=== PATIENT | male | born 1985 | race African-American/Black ===

== ENCOUNTER 2017-06-15 10:51 | Emergency (ER) | payer MEDICAID ==
[2017-06-15 10:56] VITALS: BP 120/67
--- NOTE | 2017-06-15 11:15 | ER Document Report ---
ED Medical Screen (RME) - General Chief Complaint: Bloody Stools Stated Complaint: BLOOD IN STOOL Time Seen by Provider: 06/15/17 11:03 - Related Data Allergies/Adverse Reactions: No Known Allergies Allergy (Unverified 01/22/14 19:34) Past Medical History - Social History Chew tobacco use (# tins/day): No Frequency of alcohol use: None Drug Abuse: Marijuana Renal/ Medical History: Denies: Hx Peritoneal Dialysis Physical Exam - Vital signs Vitals: Temp Pulse Resp BP Pulse Ox 98 F 76 14 120/67 100 06/15/17 10:55 06/15/17 10:55 06/15/17 10:55 06/15/17 10:55 06/15/17 10:55 - General General appearance: Appears well, Alert In distress: None - Respiratory Respiratory status: No respiratory distress Chest status: Nontender Breath sounds: Normal - Cardiovascular Rhythm: Regular Heart sounds: Normal auscultation Murmur: No - Abdominal Inspection: Normal Distension: No distension Bowel sounds: Normal - Extremities General upper extremity: Normal inspection, Normal ROM. No: Edema General lower extremity: Normal inspection, Normal ROM. No: Edema - Neurological Neuro grossly intact: Yes Cognition: Normal Orientation: AAOx4 - Psychological Associated symptoms: Normal affect, Normal mood - Skin Skin Temperature: Warm Skin Moisture: Dry Skin Color: Normal Course - Vital Signs Vital signs: Temp Pulse Resp BP Pulse Ox 98 F 76 14 120/67 100 06/15/17 10:55 06/15/17 10:55 06/15/17 10:55 06/15/17 10:55 06/15/17 10:55
--- NOTE | 2017-06-15 11:17 | ER Document Report ---
ED GI Bleed / Rectal Pain - General Mode of Arrival: Ambulatory Information source: Patient - General Chief Complaint: Bloody Stools Stated Complaint: BLOOD IN STOOL Time Seen by Provider: 06/15/17 11:03 Notes: Patient is a 32-year-old male who presents to the emergency department today with complaints of rectal bleeding off and on for the last four months. Patient states he "filled the toilet with blood". Patient states had a bowel movement yesterday with no pain. Patient states he has an appointment with his doctor on the but he did not want to wait that long as he is nervous about bleeding from his rectum. Patient states he has had sporadic rectal pain and "might have a hemorrhoid". Patient is not on any anticoagulation, has had no anal trauma, and has no associated abdominal pain. (GILDARDO [facility]) - Related Data Allergies/Adverse Reactions: No Known Allergies Allergy (Unverified 01/22/14 19:34) Past Medical History - General Information source: Patient - Social History Smoking Status: Never Smoker Cigarette use (# per day): No Chew tobacco use (# tins/day): No Frequency of alcohol use: None Drug Abuse: Marijuana Lives with: Family Family History: Reviewed & Not Pertinent Patient has suicidal ideation: No Patient has homicidal ideation: No - Medical History Medical History: Negative Surgical Hx: Negative Review of Systems - Review of Systems Constitutional: No symptoms reported EENT: No symptoms reported Cardiovascular: No symptoms reported Respiratory: No symptoms reported Gastrointestinal: See HPI, Rectal bleeding. denies: Abdominal pain Genitourinary: No symptoms reported Male Genitourinary: No symptoms reported Musculoskeletal: No symptoms reported Skin: No symptoms reported Hematologic/Lymphatic: No symptoms reported Neurological/Psychological: No symptoms reported -: Yes All other systems reviewed and negative Physical Exam - Vital signs Interpretation: Normal - General General appearance: Appears well, Alert - HEENT Head: Normocephalic, Atraumatic Eyes: Normal Pupils: PERRL - Respiratory Respiratory status: No respiratory distress Chest status: Nontender Breath sounds: Normal Chest palpation: Normal - Cardiovascular Rhythm: Regular Heart sounds: Normal auscultation Murmur: No - Abdominal Inspection: Normal Distension: No distension Bowel sounds: Normal Tenderness: Nontender Organomegaly: No organomegaly - Rectal Tenderness: No Stool: Heme negative, See lab result, Other - brown stool Hemorrhoids: External - at the 1oclock position, non-thrombosed - Back Back: Normal, Nontender - Extremities General upper extremity: Normal inspection, Normal ROM. No: Edema General lower extremity: Normal inspection, Normal ROM. No: Edema - Neurological Neuro grossly intact: Yes Cognition: Normal Orientation: AAOx4 Shailesh Coma Scale Eye Opening: Spontaneous Shailesh Coma Scale Verbal: Oriented Shialesh Coma Scale Motor: Obeys Commands Shailesh Coma Scale Total: 15 Speech: Normal Motor strength normal: LUE, RUE, LLE, RLE Sensory: Normal - Psychological Associated symptoms: Normal affect, Normal mood - Skin Skin Temperature: Warm Skin Moisture: Dry Skin Color: Normal - Vital signs Vitals: Temp Pulse Resp BP Pulse Ox 98 F 76 14 120/67 100 06/15/17 10:55 06/15/17 10:55 06/15/17 10:55 06/15/17 10:55 06/15/17 10:55 - Vital Signs Vital signs: Temp Pulse Resp BP Pulse Ox 98 F 76 14 120/67 100 06/15/17 10:55 06/15/17 10:55 06/15/17 10:55 06/15/17 10:55 06/15/17 10:55 Discharge - Discharge Clinical Impression: Rectal bleeding Condition: Good Disposition: HOME, SELF-CARE Instructions: HC Hemorrhoid Cream ([facility]), Hemorrhoids ([facility]) Additional Instructions: Return for development of abdominal pain, persisting rectal bleeding. Make sure you get a follow-up exam. Prescriptions: Glycerin/Witch Neeta Trainer [Tucks Medicated Pads] 1 each TP QID #1 packet Hydrocortisone Acetate [Anusol-Hc] 21 gm RC BID #21 oint..gm. Scribe Documentation - Scribe Written by Gagandeep:: Gagandeep Hardy, 06/15/2017 1120 acting as scribe for :: Benjamin
== END 2017-06-15 11:46 | disposition home or self-care (01) ==
LOC: ER 10:51
DX: R19.5 Other fecal abnormalities (principal)
CPT/HCPCS: 82272; 99284